=== PATIENT | female | born 1985 | race Two or more races ===

== ENCOUNTER 2022-11-25 07:59 | Outpatient (CLI) | payer OTHER ==
[~2022-11-25 07:59] MED LIST: DOLOGESIC 500-1 EACH PO
== END 2022-11-25 08:35 | disposition home or self-care (01) ==
LOC: TOM 07:59
DX: Z12.31 Encounter for screening mammogram for malignant neoplasm of breast (principal); N60.11 Diffuse cystic mastopathy of right breast; N60.12 Diffuse cystic mastopathy of left breast; R42 Dizziness and giddiness; R61 Generalized hyperhidrosis